=== PATIENT | male | born 1995 | race African-American/Black ===

== ENCOUNTER 2025-04-29 13:20 | Outpatient (REF) | payer MEDICAID, OTHER, SELFPAY ==
[2025-04-29 16:05] LABS: CT PCR Urine NOT DETECTED (Not Detect.); NG PCR Urine DETECTED (Not Detect.)
[2025-04-30 14:58] LABS: C. Trachomatis RNA TMA, Throat NOT DETECTED (NOT DETECTED); C.Trachomatis RNA TMA, Rectal NOT DETECTED (NOT DETECTED); N. gonorrhoeae RNA TMA, Throat NOT DETECTED (NOT DETECTED); N.Gonorrhoeae RNA TMA, Rectal DETECTED (NOT DETECTED)
== END 2025-04-29 13:21 | disposition home or self-care (01) ==
LOC: HO.HHCLNP 13:20
PROVIDERS: Visit Provider Family Medicine
DX: Z11.3 Encounter for screening for infections with a predominantly sexual mode of transmission (principal); Z11.8 Encounter for screening for other infectious and parasitic diseases; N34.2 Other urethritis
CPT/HCPCS: 87491; 87591

== ENCOUNTER 2025-04-30 12:25 | Outpatient (REF) | payer MEDICAID, OTHER, SELFPAY ==
[2025-04-30 13:24] LABS: MANUAL DIFF FLAG NO
[2025-04-30 13:44] LABS: Hematocrit 45.1 % (42.0-52.0); Hemoglobin 14.5 g/dl (14.0-18.0); Imm Gran Abs Auto 0.01 X10*3/uL (0.00-0.03); Imm Gran Pct Auto 0.3 % (0.0-0.4); Lymphocytes Absolute Auto 1.2 X10*3/uL (1.2-4.9); Mean Corpuscular HGB Conc 32.2 g/dl (31.0-36.0); Mean Corpuscular Hemoglobin 27.5 pg (27.0-33.0); Mean Corpuscular Volume 85.6 fL (80.0-98.0); NRBC Abs Auto 0.000 X10*3/uL (0.0-0.012); NRBC Pct Auto 0.0 /100WBC (0.0-0.2); Platelet Count 129 X10*3/uL (160-400); Red Blood Count 5.27 X10*6/uL (4.60-5.80); White Blood Count 3.2 X10*3/uL (4.8-10.8)
[2025-04-30 16:54] LABS: Alanine Aminotransferase 12 U/L (0-40); Albumin Level 4.6 g/dL (3.5-5.0); Alkaline Phosphatase 62 U/L (39-117); Anion Gap 12 (12-20); Aspartate Amino Transferase 24 U/L (5-37); Blood Urea Nitrogen 8 mg/dL (9-16); Calcium 9.4 mg/dL (8.4-10.2); Carbon Dioxide 28 mmol/L (22-29); Chloride 104 mmol/L (96-108); Estimated Glomerular Filt Rate > 60; Potassium 4.2 mmol/L (3.3-5.1); Sodium 140 mmol/L (135-145); Total Protein 7.5 g/dL (6.5-8.0)
[2025-05-01 08:13] LABS: HBsAGNum1 0.40 S/CO (0.00-0.99); Hepatitis B Surface Antigen Negative (Negative); ~HepC Num1 0.13 S/CO (0.00-0.79); ~Hepatitis C Antibody Nonreactive (Nonreactive)
[2025-05-01 09:05] LABS: Hepatitis A Antibody IgM 0.21 Index (0-0.79); ~Hepatitis A Antibody IgM Nonreactive (Nonreactive)
[2025-05-03 13:38] LABS: TS Negative Control Passed; TS Panel A 1; TS Panel B 0; TS Positive Control Passed; TSpotTB Negative (Negative)
[2025-05-03 14:38] LABS: HIV RNA PCR Qn Copies 167 copies/mL (NOT DETECTED); HIV RNA PCR Qn Log Copies 2.22 (NOT DETECTED)
[2025-05-04 13:13] LABS: Rapid Plasma Reagin Ab Titer 1:4
[2025-05-05 14:19] LABS: Glucose-6-Phosphate Dehydrogen 19.5 U/g Hgb (7.0-20.5)
[2025-05-05 16:18] LABS: Absolute CD3 Count 1050 cells/uL (840-3060); Absolute CD8 Count 628 cells/uL (180-1170); Percent CD3 Cells 84 % (57-85); Percent CD8 Cells 50 % (12-42)
== END 2025-04-30 12:26 | disposition home or self-care (01) ==
LOC: HO.HHCL 12:25
PROVIDERS: PCP Student in an Organized Health Care Education/Training Program; Referring Provider Family Medicine; Visit Provider Student in an Organized Health Care Education/Training Program
DX: Z11.3 Encounter for screening for infections with a predominantly sexual mode of transmission (principal); Z11.59 Encounter for screening for other viral diseases; B20 Human immunodeficiency virus [HIV] disease; N34.2 Other urethritis
CPT/HCPCS: 36415; 80053; 82955; 85025; 86359; 86360; 86481; 86592; 86593; 86709; 86803; 87340; 87536

== ENCOUNTER 2025-07-05 10:38 | Outpatient (REF) | payer MEDICAID, OTHER, SELFPAY ==
[2025-07-05 13:03] LABS: MANUAL DIFF FLAG NO
[2025-07-05 13:10] LABS: Hemoglobin 13.4 g/dl (14.0-18.0); NRBC Abs Auto 0.000 X10*3/uL (0.0-0.012); NRBC Pct Auto 0.0 /100WBC (0.0-0.2); PLT CLUMP 1; SCAN SMEAR FLAG 1
[2025-07-05 13:12] LABS: Hematocrit 42.7 % (42.0-52.0); Imm Gran Abs Auto 0.01 X10*3/uL (0.00-0.03); Imm Gran Pct Auto 0.3 % (0.0-0.4); Lymphocytes Absolute Auto 1.3 X10*3/uL (1.2-4.9); Mean Corpuscular HGB Conc 31.4 g/dl (31.0-36.0); Mean Corpuscular Hemoglobin 27.5 pg (27.0-33.0); Mean Corpuscular Volume 87.5 fL (80.0-98.0); Red Blood Count 4.88 X10*6/uL (4.60-5.80)
[2025-07-05 13:16] LABS: Platelet Count 125 X10*3/uL (160-400); White Blood Count 3.4 X10*3/uL (4.8-10.8)
[2025-07-05 15:16] LABS: CT PCR Urine NOT DETECTED (Not Detect.); NG PCR Urine NOT DETECTED (Not Detect.)
[2025-07-06 11:13] LABS: Rubeola IgG (Measles) <13.50 AU/mL
[2025-07-06 13:12] LABS: HBS Num1 220.08 mIU/mL (0-7.99); HBc Num1 0.88 S/CO (0.00-0.79); HBsAGNum1 0.57 S/CO (0.00-0.99); Hepatitis B Surface Antigen Negative (Negative); ~HepC Num1 0.10 S/CO (0.00-0.79); ~Hepatitis B Surface Antibody REACTIVE (Nonreactive); ~Hepatitis C Antibody Nonreactive (Nonreactive)
[2025-07-06 18:58] LABS: C. Trachomatis RNA TMA, Throat NOT DETECTED (NOT DETECTED); N. gonorrhoeae RNA TMA, Throat NOT DETECTED (NOT DETECTED)
[2025-07-06 19:53] LABS: C.Trachomatis RNA TMA, Rectal NOT DETECTED (NOT DETECTED); N.Gonorrhoeae RNA TMA, Rectal NOT DETECTED (NOT DETECTED)
[2025-07-07 02:14] LABS: HIV RNA PCR Qn Copies 106 copies/mL (NOT DETECTED); HIV RNA PCR Qn Log Copies 2.03 (NOT DETECTED)
[2025-07-07 03:25] LABS: HBc Num2 0.88 S/CO; HBc Num3 0.95 S/CO
[2025-07-08 07:14] LABS: Rapid Plasma Reagin Ab Titer 1:4
[2025-07-09 04:47] LABS: ~Hepatitis A Antibody IgG 5.61 S/CO (0.00-0.99)
== END 2025-07-05 10:39 | disposition home or self-care (01) ==
LOC: HO.HHCL 10:38
PROVIDERS: PCP Student in an Organized Health Care Education/Training Program; Visit Provider Student in an Organized Health Care Education/Training Program
DX: Z01.84 Encounter for antibody response examination (principal); Z21 Asymptomatic human immunodeficiency virus [HIV] infection status; Z20.2 Contact with and (suspected) exposure to infections with a predominantly sexual mode of transmission; Z11.59 Encounter for screening for other viral diseases
CPT/HCPCS: 36415; 85025; 86592; 86593; 86704; 86706; 86708; 86735; 86762; 86765; 86787; 86803; 87340; 87491; 87536; 87591

== ENCOUNTER 2025-08-09 18:24 | Outpatient (REF) | payer MEDICAID, OTHER, SELFPAY ==
[2025-08-09 23:43] LABS: CT PCR Urine NOT DETECTED (Not Detect.); NG PCR Urine DETECTED (Not Detect.)
== END 2025-08-09 18:25 | disposition home or self-care (01) ==
LOC: HO.HHCLNP 18:24
PROVIDERS: Visit Provider Nurse Practitioner
DX: R36.9 Urethral discharge, unspecified (principal); Z20.2 Contact with and (suspected) exposure to infections with a predominantly sexual mode of transmission
CPT/HCPCS: 87086; 87491; 87591

== ENCOUNTER 2025-09-13 10:58 | Outpatient (REF) | payer MEDICAID, OTHER, SELFPAY ==
[2025-09-14 08:12] LABS: CT PCR Urine NOT DETECTED (Not Detect.); NG PCR Urine DETECTED (Not Detect.)
== END 2025-09-13 10:59 | disposition home or self-care (01) ==
LOC: HO.HHCLNP 10:58
PROVIDERS: Visit Provider Nurse Practitioner Family
DX: Z20.2 Contact with and (suspected) exposure to infections with a predominantly sexual mode of transmission (principal); R36.9 Urethral discharge, unspecified
CPT/HCPCS: 87086; 87491; 87563; 87591; 87798